=== PATIENT | female | born 1970 | race Caucasian/White ===

== ENCOUNTER 2016-10-21 12:00 | Day surgery (SDC) | payer OTHER ==
[2016-10-21] MEDS ORDERED: BUPIVACAINE 0.5% 30 ML SDV ONE (12:14)
[2016-10-21] MEDS ORDERED: LIDOCAINE 1% 300 MG/30 ML SDV ONE (12:14)
[2016-10-21] MEDS ORDERED: ROPIVACAINE HCL 20 MG/10 ML INJ EP ONE (12:14)
[2016-10-21] MEDS ORDERED: BACITRACIN 50,000 UNITS/10 ML SYR IRR ONE (12:15)
[2016-10-21] MEDS ORDERED: ceFAZolin 2 GM/DEXTROSE 100 ML IV ONE (12:30)
[2016-10-21] MEDS ORDERED: PROPOFOL/EMULSION 500 MG/50 ML BOTTLE IV ONE ×2 (13:12→14:13)
[2016-10-21] MEDS ORDERED: MIDAZOLAM 2 MG/2 ML VIAL ONE (13:14)
[2016-10-21] MEDS ORDERED: LIDOCAINE 2% 100 MG/5 ML SYR ONE (13:23)
[2016-10-21] MEDS ORDERED: BUPIVACAINE 0.25% 30 ML SDV ONE (13:28)
[2016-10-21] MEDS ORDERED: KETOROLAC 30 MG/1 ML SDV ONE (15:37)
--- NOTE | 2016-10-21 17:06 | GOP ---
[f rep st] OPERATIVE REPORT DATE OF OPERATION: 10/21/2016 SURGEON: Yumiko Griffin DPM DIGGING MACHINE OPERATOR: Sanjuana Griffin D.P.M. ANESTHESIA: Light general MAC. ANESTHESIOLOGIST: Maxime Sam M.D. PREOPERATIVE DIAGNOSIS: Hallux rigidus, right foot. POSTOPERATIVE DIAGNOSIS: Hallux rigidus, right foot. PROCEDURE PERFORMED: Cheilectomy with decompression, 1st metatarsal type of osteotomy and screw fix ation, right foot. FINDINGS: Degenerative changes of the 1st metatarsal head. Cartilage absent along the dorsal 2/3 o f the metatarsal head with bone exposed and loose cartilage present. Along the dorsal aspect of the base of the phalanx, bone exposed involving approximately 25% of the phalanx joint surface. ESTIMATED BLOOD LOSS: Less than 5 mL. DESCRIPTION OF PROCEDURE: The patient was brought into the operating room and placed on the operati ng table in the supine position. Intravenous sedation was administered by the anesthesiologist, blaine bah. Posterior tibial and peripheral nerve block was obtained utilizing a total of 20 mL of a 1:1:1 mix of 0.5% Marcaine plain, 0.2% ropivacaine and 1% lidocaine plain. The lower extremity wa s prepped and draped in the usual sterile manner. After the limb was elevated, it was exsanguinated with an Esmarch bandage and ankle tourniquet inflated to 220 mmHg and the procedure was begun. Web ril padding was utilized under the ankle cuff. Attention was directed toward the dorsal medial aspect of the 1st metatarsophalangeal joint. A line ar incision was created. The incision was carefully deepened with care of neurovascular structures and clamped and cauterized bleeders. Incision created through the capsule. Significant synovitic f luid was noted. Hypertrophy of the dorsal aspect of the 1st metatarsal head and base of the proxima l phalanx was resected with a sagittal saw and rongeur. Upon inspection, the metatarsal head, the d orsal 2/3 of the metatarsal head, was without cartilage. Loose cartilage fragment noted central asp ect of the metatarsal head, which was resected. Microfracture was performed. A small wedge of bone was removed from the base of the proximal phalanx. Then utilizing the sagittal saw, a decompressio n type osteotomy was created with the apex being just distal to the sesamoids, base, dorsal. A tria ngular wedge of bone was resected and the 1st metatarsal head was tilted back, decompressing the huey nt. Temporary fixation was achieved with K-wires. The fixation was achieved with 2 Arthrex screws, both 2.5 headless, 1 measuring 16 mm in length and the other 18 mm in length. Compression and stab ility were noted to be excellent, with passive range of motion of the hallux, improved range of angelina on noted, and no impingement. There was slight gapping on the medial portion of the osteotomy and t his was filled with the bone that was resected from the wedge. The osteotomy was otherwise very con gruent. The wound was copiously irrigated with bacitracin irrigation solution. Capsular closure was achieve d with 2-0 and 3-0 Vicryl. The ankle tourniquet was released and a normal hyperemic response was no katiana to all digits. Subcutaneous closure achieved with 4-0 Monocryl and the skin was closed with 4-0 Prolene in a horizontal mattress and simple interrupted suture manner. Dressings include Xeroform, 4x4s, fluffs, Katya reinforced with tape, and an Nathaniel bandage. PATHOLOGY: No specimen sent. INJECTABLES: An additional 10 mL of 0.25% Marcaine plain was injected to complement postoperative a nesthesia. The patient tolerated the procedure well and left the operating room with vital signs stable and vas cular status intact to all digits. There were no intraoperative complications. In postoperative recovery, the patient was doing well. Her will be providing her transporta tion home. She is to follow up in our office in 2 days for wound check. PROGNOSIS: Good. /[id number]/MODL
== END 2016-10-21 16:50 | disposition home or self-care (01) ==
LOC: FSGY 12:00
PROVIDERS: ATTEND Podiatrist
PROC: 0QBN0ZZ Excision of Right Metatarsal, Open Approach (ICD-10-PCS; principal; 2016-10-21 13:15)
DX: M20.21 Hallux rigidus, right foot (principal); M19.071 Primary osteoarthritis, right ankle and foot
CPT/HCPCS: 28289; 73620; C1769; C1713; J0690; J1885; J2001; J2250; J2704; J2795